=== PATIENT | female | born 1940 | race Caucasian/White ===

== ENCOUNTER 2021-02-27 14:39 | Outpatient (CLI) | payer BC | END 2021-02-27 23:59 | disposition home or self-care (01) | LOC: CARD DIAG 14:39 | PROVIDERS: ATTEND Physician Assistant | DX: I08.8 Other rheumatic multiple valve diseases (principal) | CPT/HCPCS: 93306 ==

== ENCOUNTER 2021-06-30 10:00 | Inpatient (IN) | payer BC ==
[~2021-06-30] VITALS: Ht 160 cm; Wt 73.0 kg
[2021-07-14] MEDS ORDERED: LEVO50TA PO (15:42)
[2021-07-14] MEDS ORDERED: ZINC (15:42)
[2021-07-14] MEDS ORDERED: MULT-1085 PO (15:42)
[2021-07-14] MEDS ORDERED: VITAMIN C (15:42)
[2021-07-14] MEDS ORDERED: CURCUMIN (15:42)
[2021-07-14 15:44] LABS: BASOPHILS % (AUTO) 0.6 % (0-1); EOSINOPHILS # (AUTO) 0.3 X10'3 (0-0.9); EOSINOPHILS % (AUTO) 4.7 % (0-6); LYMPHOCYTES # (AUTO) 1.9 X10'3 (1.1-4.8); LYMPHOCYTES % (AUTO) 36.1 % (21-51); MEAN CORPUSCULAR HEMOGLOBIN 31.4 PG (27.0-31.0); MEAN CORPUSCULAR HGB CONC 33.5 g/dL (33.0-36.5); MEAN CORPUSCULAR VOLUME 93.7 FL (78-98); MEAN PLATELET VOLUME 9.9 FL (7.4-10.4); MONOCYTES # (AUTO) 0.5 X10'3 (0-0.9); MONOCYTES % (AUTO) 9.9 % (2-12); NEUTROPHILS # (AUTO) 2.6 X10'3 (1.8-7.7); NEUTROPHILS % (AUTO) 48.7 % (42-75); PRE OP HEMATOCRIT 39.9 % (35.0-45.0); PRE OP HEMOGLOBIN 13.4 g/dL (12.0-16.0); PRE OP PLATELET COUNT 274 X10'3 (140-440); RED BLOOD COUNT 4.26 X10'6 (4.20-5.60); RED CELL DISTRIBUTION WIDTH 13.3 % (11.5-14.5)
[2021-07-14 16:09] LABS: ALBUMIN 3.9 G/DL (3.4-5.0); ALBUMIN/GLOBULIN RATIO 1.1 (1.1-1.5); ALKALINE PHOSPHATASE 58 IU/L (46-116); BLOOD UREA NITROGEN 13 MG/DL (7-18); BUN/CREATININE RATIO 19.4 (6.6-38.0); CALCIUM 9.2 MG/DL (8.5-10.1); CHLORIDE 103 MMOL/L (99-107); CREATININE 0.67 MG/DL (0.40-0.90); PRE OP ALT 30 U/L (30-65); PRE OP ANION GAP 9 (8-16); PRE OP AST 33 U/L (10-37); PRE OP BILIRUB, TOTAL 0.4 MG/DL (0.0-1.0); PRE OP GLUCOSE 95 MG/DL (70-104); PRE OP SODIUM 139 MMOL/L (135-145); TOTAL CARBON DIOXIDE 26.6 MMOL/L (24-32); TOTAL PROTEIN 7.4 G/DL (6.4-8.2); eGFR 85 ML/MIN
[2021-07-21] VITALS (19 sets, daily range): BP systolic 80–155; BP diastolic 45–80
[2021-07-21] MEDS ORDERED: ringers solution, lacted 1,000 ML IV SCH ×2 (05:00→10:50)
[2021-07-21] MEDS ORDERED: vancomycin 1,500 MG in NS 300ml IV soln IV ONE (05:30)
[2021-07-21] MEDS ORDERED: cefazolin/dext.iso 2gm/50ml IV ONE (05:30)
[2021-07-21] MEDS ORDERED: famotidine 20mg tablet PO ONE (05:30)
[2021-07-21] MEDS ORDERED: tranexamic acid 650mg tablet PO ONE (05:30)
[2021-07-21] MEDS ORDERED: ROPIVAcaine 0.5% (5mg/ml) 30ml vial ONE (07:59)
[2021-07-21] MEDS ORDERED: ketorolac trometh. 30mg/ml inj. ONE (07:59)
[2021-07-21] MEDS ORDERED: tetracaine 1% (10mg/ml) pres. free inj. ONE (09:00)
[2021-07-21] MEDS ORDERED: MIDAZolam 1mg/ml 10ml vial ONE (09:02)
[2021-07-21] MEDS ORDERED: morphine /PF 1mg/ml 10ml inj. ONE (09:02)
[2021-07-21] MEDS ORDERED: hydrALAZINE 20mg/ml inj. IV PRN (10:50)
[2021-07-21] MEDS ORDERED: fentaNYL/PF 50MCG/1 ML 2ML syringe IV PRN ×2 (10:50)
[2021-07-21] MEDS ORDERED: labetalol 20mg/4ml (5mg/ml) syringe IV PRN (10:50)
[2021-07-21] MEDS ORDERED: ondansetron/PF 4mg/2ml inj IV PRN ×2 (10:50→11:45)
[2021-07-21] MEDS ORDERED: morphine 4 MG/ML inj SYRINge IV PRN (10:50)
[2021-07-21] MEDS ORDERED: morphine 2 MG/ML inj. syringe IV PRN (10:50)
[2021-07-21] MEDS ORDERED: diphenhydrAMINE 50 mg/ml inj IV PRN (11:45)
--- NOTE | 2021-07-21 12:50 | NUR ---
DERMATOME LEVEL T10 Addendum: 07/21/21 at 1320 by Bianka Valentin RN Amended: Links added.
--- NOTE | 2021-07-21 12:50 | NUR ---
Received from OR via BED IN STABLE CONDITION , accompanied by Anesthesiologist and EARLY HEAD START TEACHER report given by EARLY HEAD START TEACHER AND Anesthesiolgist. Addendum: 07/21/21 at 1305 by Bianka Valentin RN Amended: Links added.
[2021-07-21] MEDS ORDERED: HYDROmorphone 1 mg/ml syringe IV PRN (13:15)
[2021-07-21] MEDS ORDERED: HYDROmorphone inj. 0.5 MG/0.5 ML DISP.SYRIN IV PRN (13:15)
[2021-07-21] MEDS ORDERED: magnesium hydroxide 30ml (MOM) UD suspension PO PRN (13:15)
[2021-07-21] MEDS ORDERED: diphenhydrAMINE 25mg capsule PO PRN ×2 (13:15)
[2021-07-21] MEDS: potassium cl 20mEq in 1/2 NS 1,000 ML IV SCH ×2 (13:15→22:27)
[2021-07-21] MEDS ORDERED: oxyCODONE IR 5mg (immed. release) tablet PO PRN ×2 (13:15)
[2021-07-21] MEDS ORDERED: bisacodyl 10mg suppository rectal RC PRN (13:15)
[2021-07-21] MEDS ORDERED: acetaminophen 325mg tablet PO PRN (13:15)
--- NOTE | 2021-07-21 13:20 | NUR ---
DERMATOME LEVEL T11. Addendum: 07/21/21 at 1339 by Bianka Valentin RN Amended: Links added.
--- NOTE | 2021-07-21 14:17 | NUR ---
DERMATOME LEVEL T12 Addendum: 07/21/21 at 1418 by Bianka Valentin RN Amended: Links added.
--- NOTE | 2021-07-21 14:20 | NUR ---
PATIENT DISCHARGED FROM PACU IN STABLE CONDITION AFTER REPORT GIVEN. PATIENT WAS TRANSFERRED TO ROOM VIA BED WITH RUBBER SPLICER AND CHRISTIE. Addendum: 07/21/21 at 1434 by Bianka Valentin RN Amended: Links added.
--- NOTE | 2021-07-21 14:30 | NUR ---
Received pt from recovery via bed. Call light in reach, bed low positioned for comfort. VSS. Discussed post-op POC, Pt verbalizes understanding. Pt denies pain and block level currently at T-12.
[2021-07-21] MEDS: acetaminophen 325mg tablet PO SCH ×2 (16:05→19:49)
[2021-07-21] MEDS: ceFAZolin/D5W- 1GM premix 50 ML IV SCH (16:07)
--- NOTE | 2021-07-21 18:15 | NUR ---
Problems reprioritized. Patient report given, questions answered & plan of care reviewed with KALEN Milner.
[2021-07-21] MEDS: sennosides 8.6mg tablet PO SCH (19:49)
[2021-07-21] MEDS ORDERED: vancomycin/NS 1 GM ADD-VANTAGE 250 ML IV SCH (20:00)
--- NOTE | 2021-07-21 21:58 | NUR ---
PT HAS NOT VOIDED SINCE ADMISSION POST SURGERY. BLADDER SCAN PERFORMED W/ 398ML. NO S/S OF DISCOMFORT OR BLADDER DISTENTION NOTED. WILL CONTINUE TO OBSERVE.
--- NOTE | 2021-07-21 22:15 | NUR ---
7660 Left [facility] with Dr Muir answering service to inform of no void since surgery and bladder scan result of 398ml/
--- NOTE | 2021-07-21 22:18 | NUR ---
spoke to Dr Blount and informed him pt has not voided postoperatively and pt unable to void . bladder scan results 398ml noted. orders obtained .
[2021-07-22] VITALS: BP 115/56
[2021-07-22] MEDS: ceFAZolin/D5W- 1GM premix 50 ML IV SCH (00:15)
[2021-07-22] MEDS: acetaminophen 325mg tablet PO SCH ×4 (02:18→21:31)
[2021-07-22 04:19] VITALS: BP 112/53
--- NOTE | 2021-07-22 04:58 | NUR ---
late entry 2300 pt still unable to void. pt allergic to betadine . pt states she was told never to use iodine . pt periarea washed and then cleansed with tan wipes loreta lawson attempted to straight cath but was unsuccessful .i was able to straight cath pt using sterile technique after cleansing periarea as above . straight cath for 300ml ty urine . pt tolerated well
[2021-07-22] MEDS: ondansetron/PF 4mg/2ml inj IV PRN ×2 (05:27→14:49)
[2021-07-22] MEDS: potassium cl 20mEq in 1/2 NS 1,000 ML IV SCH ×3 (05:40→21:15)
--- NOTE | 2021-07-22 06:18 | NUR ---
PT HAD BLADDER SCAN PERFORMED THAT SHOWED 609ML. ATTEMPTED TO INDWELLING CATHETER PLACEMENT WITH STERILE TECHNIQUE X2 PER PROTOCOL. UNSUCCESSFUL AND ENDORSED TO AM SHIFT. NO S/S OF ACUTE PAIN/DISTRESS NOTED. WILL CONTINUE TO OBSERVE.
[2021-07-22 06:24] LABS: BASOPHILS % (AUTO) 0.4 % (0-1); EOSINOPHILS # (AUTO) 0.1 X10'3 (0-0.9); HEMATOCRIT 30.4 % (35.0-45.0); HEMOGLOBIN 10.4 g/dl (12.0-16.0); LYMPHOCYTES % (AUTO) 15.4 % (21-51); MEAN CORPUSCULAR HEMOGLOBIN 32.2 PG (27.0-31.0); MEAN CORPUSCULAR HGB CONC 34.2 g/dL (33.0-36.5); MONOCYTES # (AUTO) 0.6 X10'3 (0-0.9); MONOCYTES % (AUTO) 9.6 % (2-12); NEUTROPHILS # (AUTO) 4.8 X10'3 (1.8-7.7); NEUTROPHILS % (AUTO) 72.6 % (42-75); PLATELET COUNT 190 X10'3 (140-440); RED BLOOD COUNT 3.24 X10'6 (4.20-5.60); RED CELL DISTRIBUTION WIDTH 13.6 % (11.5-14.5); WHITE BLOOD COUNT 6.6 X10'3 (4.5-11.0)
--- NOTE | 2021-07-22 06:49 | NUR ---
Patient in room [facility]. I have received report from KALEN Milner and had the opportunity to ask questions and assume patient care.
[2021-07-22 07:00] VITALS: BP 107/55
[2021-07-22 07:07] LABS: ANION GAP 8 (8-16); CHLORIDE 100 MMOL/L (99-107); POTASSIUM 3.8 MMOL/L (3.5-5.1); SODIUM 134 MMOL/L (135-145); TOTAL CARBON DIOXIDE 26.3 MMOL/L (24-32)
[2021-07-22] MEDS: aspirin 325mg tablet PO SCH (08:43)
[2021-07-22] MEDS: levoTHYROXINE 25mcg tablet PO SCH (08:43)
[2021-07-22] MEDS: multivitamins, therapeutics tablet PO SCH (08:43)
[2021-07-22 11:00] VITALS: BP 106/49
--- NOTE | 2021-07-22 14:13 | NUR ---
Primary joint consult: Pt s/p reverse arthroplasty of R shoulder this admit. Provided pt w/ written and verbal high protein diet education w/ RD contact info. Addendum: 07/22/21 at [address] Amended: Links added. Addendum: 07/22/21 at [address] Correction: arthroplasty of L knee
--- NOTE | 2021-07-22 18:18 | NUR ---
Problems reprioritized. Patient report given, questions answered & plan of care reviewed with KALEN Milner.
[2021-07-22 20:00] VITALS: BP 128/54
[2021-07-22] MEDS: sennosides 8.6mg tablet PO SCH (21:30)
[2021-07-22] MEDS: celeCOXIB 100mg capsule PO SCH (21:31)
[2021-07-23] MEDS: acetaminophen 325mg tablet PO SCH ×2 (02:18→07:20)
[2021-07-23] MEDS: potassium cl 20mEq in 1/2 NS 1,000 ML IV SCH (05:15)
[2021-07-23 06:29] LABS: BASOPHILS % (AUTO) 0.2 % (0-1); EOSINOPHILS # (AUTO) 0.4 X10'3 (0-0.9); EOSINOPHILS % (AUTO) 6.4 % (0-6); HEMATOCRIT 30.6 % (35.0-45.0); HEMOGLOBIN 10.6 g/dl (12.0-16.0); LYMPHOCYTES # (AUTO) 0.8 X10'3 (1.1-4.8); MEAN CORPUSCULAR HEMOGLOBIN 32.1 PG (27.0-31.0); MEAN CORPUSCULAR HGB CONC 34.5 g/dL (33.0-36.5); MEAN CORPUSCULAR VOLUME 93.1 FL (78-98); MEAN PLATELET VOLUME 10.1 FL (7.4-10.4); MONOCYTES # (AUTO) 0.6 X10'3 (0-0.9); MONOCYTES % (AUTO) 8.8 % (2-12); NEUTROPHILS # (AUTO) 4.7 X10'3 (1.8-7.7); NEUTROPHILS % (AUTO) 71.6 % (42-75); PLATELET COUNT 179 X10'3 (140-440); RED BLOOD COUNT 3.29 X10'6 (4.20-5.60); RED CELL DISTRIBUTION WIDTH 13.2 % (11.5-14.5); WHITE BLOOD COUNT 6.5 X10'3 (4.5-11.0)
--- NOTE | 2021-07-23 07:11 | NUR ---
Patient in room [facility]. I have received report from SIS Milner and had the opportunity to ask questions and assume patient care.
[2021-07-23 07:16] VITALS: BP 132/65
[2021-07-23] MEDS: celeCOXIB 100mg capsule PO SCH (07:19)
[2021-07-23] MEDS: levoTHYROXINE 25mcg tablet PO SCH (07:19)
[2021-07-23] MEDS: multivitamins, therapeutics tablet PO SCH (07:20)
[2021-07-23] MEDS: aspirin 325mg tablet PO SCH (08:42)
[2021-07-23 12:34] VITALS: BP 127/82
--- NOTE | 2021-07-23 13:13 | NUR ---
patient wanting to eat lunch before dc.
[2021-07-23] MEDS ORDERED: acetaminophen 325mg tablet PO PRN (13:15)
--- NOTE | 2021-07-23 16:15 | NUR ---
Patient alert and oriented in no apparent distress. Discussed with patient discharge instructions. Patient verbalized understanding of teaching and all questions answered. Patient dc'd home with x2 cold packs and all personal belongings. Dressing to left knee changed prior to dc. She had on knee wrap as well.
== END 2021-07-23 16:14 | disposition home or self-care (01) | DRG 470 ==
LOC: PAS IN 07-21 06:23 → SUR 3N 07-21 14:32
PROVIDERS: ADMIT Orthopaedic Surgery; ATTEND Orthopaedic Surgery
PROC: 3E0T3BZ Introduction of Anesthetic Agent into Peripheral Nerves and Plexi, Percutaneous Approach (ICD-10-PCS; 2021-07-21)
PROC: 3E0T33Z Introduction of Anti-inflammatory into Peripheral Nerves and Plexi, Percutaneous Approach (ICD-10-PCS; 2021-07-21)
PROC: 0SRD0J9 Replacement of Left Knee Joint with Synthetic Substitute, Cemented, Open Approach (ICD-10-PCS; principal; 2021-07-21 10:50)
DX: M17.12 Unilateral primary osteoarthritis, left knee (principal); D62 Acute posthemorrhagic anemia; R33.9 Retention of urine, unspecified; I10 Essential (primary) hypertension; E66.9 Obesity, unspecified; Z68.28 Body mass index [BMI] 28.0-28.9, adult; Z91.041 Radiographic dye allergy status; Z98.51 Tubal ligation status; Z79.899 Other long term (current) drug therapy
CPT/HCPCS: Z7506; Z7508; 36415; 80051; 80053; 82948; 84443; 85025; 87081; 93005; 97110; 97116; 97161; 97530; A4215; A7000; C1713; C1776; G0378; J0690; J1885; J2250; J2274; J2405; J2795; J3370; J3480; J3490; J7040; J7120; U0003; U0005

== ENCOUNTER 2021-12-29 14:56 | Outpatient (CLI) | payer BC, MEDICARE ==
[~2021-12-29 14:56] MED LIST: CURCUMIN; LEVO50TA PO; MULT-1085 PO; VITAMIN C; ZINC
== END 2021-12-29 23:59 | disposition home or self-care (01) ==
LOC: RAD 14:56
PROVIDERS: ATTEND Physician Assistant
DX: M48.02 Spinal stenosis, cervical region (principal); M47.812 Spondylosis without myelopathy or radiculopathy, cervical region; M50.30 Other cervical disc degeneration, unspecified cervical region; M25.78 Osteophyte, vertebrae; M75.101 Unspecified rotator cuff tear or rupture of right shoulder, not specified as traumatic; M25.411 Effusion, right shoulder; M75.51 Bursitis of right shoulder
CPT/HCPCS: 72141; 73221